=== PATIENT | male | born 1935 | race Two or more races ===

== ENCOUNTER 2019-10-30 23:40 | Inpatient (IN) | payer MEDICARE, OTHER ==
[~2019-10-30] VITALS: Ht 165.1 cm; Wt 54.7 kg
[2019-10-30] MEDS ORDERED: [UNRECOGNIZED DRUG - REMARK] (23:58)
[2019-10-30] MEDS ORDERED: [UNRECOGNIZED DRUG - REMARK] (23:58)
[2019-10-31] MEDS ORDERED: ASPIRIN 325 MG TABLET PO ONE (00:15)
[2019-10-31] MEDS ORDERED: HEPARIN SODIUM,PORCINE 5,000 UNITS/ML VIAL IV ONE (00:15)
[2019-10-31] MEDS ORDERED: HEPARIN/D5W DRIP 500 ML IV PRN ×2 (00:15→09:00)
[2019-10-31] MEDS ORDERED: HEPARIN/D5W DRIP 500 ML ONE (00:20)
[2019-10-31] MEDS ORDERED: HEPARIN SODIUM,PORCINE 5,000 UNITS/ML VIAL ONE (00:20)
[2019-10-31] MEDS ORDERED: ASPIRIN 325 MG TABLET ONE (00:20)
[2019-10-31 01:00] LABS: CARBON DIOXIDE 28 mmol/L (21-32); CHLORIDE 108 mmol/L (98-107); CREATININE 2.2 mg/dL (0.6-1.3); GLUCOSE 123 mg/dL (74-106); POTASSIUM 3.9 mmol/L (3.5-5.1); UREA NITROGEN, BLOOD 40 mg/dL (7-18)
[2019-10-31] MEDS ORDERED: FUROSEMIDE 40 MG/4 ML VIAL IV ONE (01:30)
[2019-10-31] MEDS ORDERED: FUROSEMIDE 40 MG/4 ML VIAL ONE (01:30)
[2019-10-31 01:39] LABS: BASOPHILS % (AUTO) 0.5 % (0.0-2.0); EOSINOPHILS # (AUTO) 0.5 K/uL (0.0-0.7); EOSINOPHILS % (AUTO) 6.6 % (0.0-7.0); HEMOGLOBIN 10.4 g/dL (12.5-16.3); LYMPHOCYTES # (AUTO) 0.9 K/uL (20.0-40.0); LYMPHOCYTES % (AUTO) 10.7 % (20.5-51.5); MEAN CORPUSCULAR HEMOGLOBIN 26.3 uug (23.8-33.4); MEAN CORPUSCULAR HGB CONC 32 g/dL (32.5-36.3); MEAN CORPUSCULAR VOLUME 81.2 fL (73.0-96.2); MONOCYTES # (AUTO) 0.8 K/uL (2.0-10.0); MONOCYTES % (AUTO) 10.5 % (0.0-11.0); NEUTROPHILS # (AUTO) 5.8 K/uL (1.8-8.9); NEUTROPHILS % (AUTO) 71.7 % (38.5-71.5); PLATELET COUNT (AUTO) 225 K/uL (152-348); RED BLOOD CELL COUNT(AUTO) 3.94 MIL/uL (4.06-5.63); WHITE BLOOD COUNT (AUTO) 8.1 K/uL (3.6-10.2)
[2019-10-31] MEDS ORDERED: LORAZEPAM 2 MG/1 ML VIAL ONE (01:44)
[2019-10-31] MEDS ORDERED: LORAZEPAM 2 MG/1 ML VIAL IV ONE (01:45)
--- NOTE | 2019-10-31 01:55 | NUR ---
Pt. admitted to [facility] , under care of DIMITRIS LOUIE DNP Belongs List completed
--- NOTE | 2019-10-31 03:19 | NUR ---
REPORT GIVEN TO DMITRY DEE.
--- NOTE | 2019-10-31 03:40 | NUR ---
Admitted 83 y/o Male under the care of Dr. Gideon Granda. Dx: CHF. Patient is A&Ox1 w/ confusion, Maori speaking only. On Heparin drip 660 units for ACS running at 13.2 ml/hr. IV site on RAC 20g and LFA 20g intact and patent. Patient placed on Tele monitor. Body assessment done. Admission protocol initiated. Safety measures observed. Call light in reach
[2019-10-31 04:00] VITALS: BP 140/90
[2019-10-31] MEDS ORDERED: BUMETANIDE INJ 6 MG in IV DEXTROSE 5% 36 ML IV ONE (04:45)
[2019-10-31] MEDS ORDERED: HYDROCODONE/APAP 5-325MG TABLET PO PRN (04:45)
[2019-10-31] MEDS ORDERED: ALBUTEROL SULFATE 2.5 MG/ 0.5 ML NEBU NEB PRN (04:45)
[2019-10-31] MEDS ORDERED: IPRATROPIUM BROMIDE 0.5 MG/2.5 ML NEBU NEB PRN (04:45)
[2019-10-31] MEDS ORDERED: MAGNESIUM HYDROXIDE 30 ML LIQUID UDC PO PRN (04:45)
[2019-10-31] MEDS ORDERED: DEXTROSE 50% 50 ML DISP.SYRIN IV PRN (04:45)
[2019-10-31] MEDS ORDERED: Z GUARD REMEDY PASTE 57 GM TUBE TOP PRN (04:45)
[2019-10-31] MEDS ORDERED: ONDANSETRON 4 MG/2 ML VIAL IV PRN (04:45)
[2019-10-31] MEDS ORDERED: BUMETANIDE 1 MG/4 ML VIAL ONE ×2 (05:15)
[2019-10-31] MEDS: NITROGLYCERIN OINT 1 GM PACKET TP SCH ×3 (05:49→17:00)
[2019-10-31] MEDS: ACETAMINOPHEN 325 MG TABLET PO PRN (05:56)
[2019-10-31] MEDS: LEVOTHYROXINE SODIUM 100 MCG TABLET PO SCH (06:03)
[2019-10-31] MEDS: BLOOD SUGAR DIAGNOSTIC 1 EACH STRIP VI SCH ×5 (06:44→20:28)
[2019-10-31 07:56] LABS: BASOPHILS % (AUTO) 0.4 % (0.0-2.0); EOSINOPHILS # (AUTO) 0.1 K/uL (0.0-0.7); EOSINOPHILS % (AUTO) 1.6 % (0.0-7.0); HEMATOCRIT 29.7 % (36.7-47.1); HEMOGLOBIN 9.7 g/dL (12.5-16.3); LYMPHOCYTES # (AUTO) 0.7 K/uL (20.0-40.0); LYMPHOCYTES % (AUTO) 11.4 % (20.5-51.5); MEAN CORPUSCULAR HEMOGLOBIN 26.7 uug (23.8-33.4); MEAN CORPUSCULAR HGB CONC 33 g/dL (32.5-36.3); MEAN CORPUSCULAR VOLUME 82.3 fL (73.0-96.2); MONOCYTES # (AUTO) 1.1 K/uL (2.0-10.0); NEUTROPHILS # (AUTO) 4.2 K/uL (1.8-8.9); NEUTROPHILS % (AUTO) 68.6 % (38.5-71.5); PLATELET COUNT (AUTO) 206 K/uL (152-348); RED BLOOD CELL COUNT(AUTO) 3.61 MIL/uL (4.06-5.63); WHITE BLOOD COUNT (AUTO) 6.2 K/uL (3.6-10.2)
[2019-10-31 08:16] LABS: CARBON DIOXIDE 26 mmol/L (21-32); CHLORIDE 108 mmol/L (98-107); GLUCOSE 123 mg/dL (74-106); MAGNESIUM 2.3 mg/dL (1.8-2.4); PHOSPHOROUS 3.4 mg/dL (2.5-4.9); UREA NITROGEN, BLOOD 41 mg/dL (7-18)
[2019-10-31 08:29] LABS: CREATININE 2.5 mg/dL (0.6-1.3)
[2019-10-31 09:04] LABS: NEUTROPHILS % (MANUAL) 75 % (42-75)
[2019-10-31 09:05] LABS: EOSINOPHILS % (MANUAL) 5 % (0-8); LYMPHOCYTES % (MANUAL) 12 % (20-40); MONOCYTES % (MANUAL) 8 % (2-10)
[2019-10-31 11:15] VITALS: BP 151/97
[2019-10-31] MEDS ORDERED: HEPARIN SODIUM,PORCINE 5,000 UNITS/ML VIAL IV PRN (11:45)
[2019-10-31] MEDS ORDERED: LEVOFLOXACIN 500 MG/D5W 500 MG in PREMIXED 1 EACH IV SCH (14:30)
[2019-10-31] MEDS ORDERED: FUROSEMIDE 40 MG/4 ML VIAL IV SCH (15:00)
[2019-10-31 15:16] VITALS: BP 126/83
[2019-10-31] MEDS: ASPIRIN EC 81 MG TABLET.DR PO SCH (15:31)
[2019-10-31] MEDS ORDERED: LEVOFLOXACIN 500 MG/D5W 500 MG in PREMIXED 1 EACH IV ONE (16:00)
--- NOTE | 2019-10-31 18:40 | NUR ---
PATIENT HAS BEEN COOPERATIVE WITH CARE THROUGHOUT SHIFT, Luxembourgish speaking only. On Heparin drip 610 units for ACS running. IV site on RAC 20g and LFA 20g intact and patent. Patient placed on Tele monitor. Safety measures observed. Call light in reach. Patient tolerating heparin drip, and adjusted as ordered per protocol. All needs met at this time, bed in low position, side rails up x2. call light in reach.
--- NOTE | 2019-10-31 19:30 | NUR ---
Received patient resting in bed, easily to arouse. No signs of acute distress noted. No complaints of pain or SOB. Vitals WNL. Heparin running at 610 units/hr on the right forearm. Next APTT is scheduled for 0600. Heplock on the right AC is intact and patent. Safety measures initiated. Bed is low and locked, call light within reach. Will continue to monitor.
[2019-10-31 20:00] VITALS: BP 126/77
[2019-11-01] VITALS: BP 124/76
[2019-11-01] MEDS: NITROGLYCERIN OINT 1 GM PACKET TP SCH ×5 (00:12→23:51)
[2019-11-01 04:00] VITALS: BP 115/74
[2019-11-01] MEDS: LEVOTHYROXINE SODIUM 100 MCG TABLET PO SCH (06:18)
[2019-11-01] MEDS: PANTOPRAZOLE SODIUM 40 MG TABLET.DR PO SCH (06:18)
[2019-11-01 06:32] LABS: BASOPHILS % (AUTO) 0.5 % (0.0-2.0); EOSINOPHILS # (AUTO) 0.9 K/uL (0.0-0.7); EOSINOPHILS % (AUTO) 15.6 % (0.0-7.0); HEMATOCRIT 33.4 % (36.7-47.1); HEMOGLOBIN 11.1 g/dL (12.5-16.3); LYMPHOCYTES # (AUTO) 1.3 K/uL (20.0-40.0); LYMPHOCYTES % (AUTO) 20.9 % (20.5-51.5); MEAN CORPUSCULAR HEMOGLOBIN 27.9 uug (23.8-33.4); MEAN CORPUSCULAR HGB CONC 33 g/dL (32.5-36.3); MONOCYTES # (AUTO) 0.7 K/uL (2.0-10.0); MONOCYTES % (AUTO) 12.4 % (0.0-11.0); NEUTROPHILS % (AUTO) 50.6 % (38.5-71.5); PLATELET COUNT (AUTO) 231 K/uL (152-348); RED BLOOD CELL COUNT(AUTO) 3.97 MIL/uL (4.06-5.63)
--- NOTE | 2019-11-01 06:39 | NUR ---
Patient slept well, no distress noted. Heparin still running at 12.2 ml/hr. Medications given as ordered. No complaints of pain or SOB. Vitals WNL. Safety measures given. Will endorse to next shift.
[2019-11-01 06:45] LABS: CHLORIDE 105 mmol/L (98-107); GLUCOSE 78 mg/dL (74-106); PHOSPHOROUS 2.8 mg/dL (2.5-4.9); POTASSIUM 3.4 mmol/L (3.5-5.1); UREA NITROGEN, BLOOD 46 mg/dL (7-18)
[2019-11-01 08:07] LABS: CARBON DIOXIDE 28 mmol/L (21-32)
[2019-11-01] MEDS ORDERED: ASPIRIN EC 81 MG TABLET.DR PO SCH (09:00)
[2019-11-01 09:13] LABS: CREATININE 2.6 mg/dL (0.6-1.3)
[2019-11-01 09:14] LABS: CHOLESTEROL 130 mg/dL (<200); HDL CHOLESTEROL 47 mg/dL (40-60); TRIGLYCERIDES 53 MG/DL (30-150)
[2019-11-01] MEDS: ASPIRIN EC 81 MG TABLET.DR PO SCH (09:19)
[2019-11-01] MEDS: FUROSEMIDE 40 MG TABLET PO SCH (09:19)
[2019-11-01] MEDS: BLOOD SUGAR DIAGNOSTIC 1 EACH STRIP VI SCH ×4 (09:21→20:56)
[2019-11-01] MEDS: INSULIN REGULAR, HUMAN 300 UNIT/3 ML VIAL SQ PRN ×3 (09:23→17:42)
[2019-11-01 11:09] VITALS: BP 114/72
[2019-11-01] MEDS: CLINDAMYCIN HCL 300 MG CAPSULE PO SCH ×2 (14:32→21:02)
[2019-11-01 15:08] VITALS: BP 103/67
--- NOTE | 2019-11-01 19:30 | NUR ---
Received patient awake and alert in bed, No acute distress noted. Heparin drip was D/C Heplock on right AC and right forearm are intact and patent. Patient has no complaints of discomfort at this time. Vitals WNL. Safety measures initiated. Bed is low and locked, call light within reach, bed alarm on. Will continue to monitor.
[2019-11-01 20:28] VITALS: BP 113/64
[2019-11-01] MEDS ORDERED: CLINDAMYCIN HCL 300 MG CAPSULE ONE (20:29)
[2019-11-01] MEDS ORDERED: AMOXICILLIN-CLAVUL 500-125MG TABLET PO SCH (21:00)
--- NOTE | 2019-11-01 21:59 | NUR ---
Patient refusing accucheck, notified Dr. Correa and noted that hemoglobin A1c was 5.7, okay to discontinue accuchecks.
[2019-11-02] VITALS: BP 113/65
[2019-11-02 04:00] VITALS: BP 115/68
[2019-11-02] MEDS ORDERED: CLINDAMYCIN HCL 150 MG CAPSULE ONE (06:04)
[2019-11-02] MEDS: PANTOPRAZOLE SODIUM 40 MG TABLET.DR PO SCH (06:14)
[2019-11-02] MEDS: LEVOTHYROXINE SODIUM 100 MCG TABLET PO SCH (06:14)
[2019-11-02] MEDS: CLINDAMYCIN HCL 300 MG CAPSULE PO SCH ×3 (06:16→22:43)
[2019-11-02] MEDS: NITROGLYCERIN OINT 1 GM PACKET TP SCH ×3 (06:17→17:04)
--- NOTE | 2019-11-02 08:00 | NUR ---
PT is in no acute distress. PT telugu speaking but able to make his needs known. Call light is within reach. Fall precaution implemented. PT near nursing station. Awaiting for PT eval. PT is to have the life vest (AIcd vest) awaiting vendor.
[2019-11-02] MEDS: FUROSEMIDE 40 MG TABLET PO SCH (08:59)
[2019-11-02] MEDS: ASPIRIN EC 81 MG TABLET.DR PO SCH (08:59)
[2019-11-02 11:34] VITALS: BP 139/82
--- NOTE | 2019-11-02 13:00 | NUR ---
[employer] vendor here educating patient. Pt stating that pt is forgetfull.
[2019-11-02 15:37] VITALS: BP 107/58
[2019-11-02] MEDS ORDERED: LEVOFLOXACIN 250MG /D5W 250 MG in PREMIXED 1 EACH IV SCH (16:00)
--- NOTE | 2019-11-02 18:24 | NUR ---
Dr ruiz notified that pt is refusing to have the life vest. Pt had discussion with director of social services. Dr ruiz here to see patient. Pt is upset that we dont have his dentures. Explained to pt that per valuables checklist is that he didnt come with any dentures. Pt is in no acute distress. TELE dc. Call light is within reach.
--- NOTE | 2019-11-02 19:30 | NUR ---
RECEIVED PT AWAKE, ALERT AND ORIENTEDX3. PT IN NO ACUTE DISTRESS. IV INTACT. SAFETY AND COMFORT PROVIDED. WILL CONTINUE TO MONITOR.
[2019-11-02 20:32] VITALS: BP 112/67
[2019-11-03] MEDS: NITROGLYCERIN OINT 1 GM PACKET TP SCH ×4 (00:24→18:33)
[2019-11-03] MEDS: CLINDAMYCIN HCL 300 MG CAPSULE PO SCH ×3 (05:49→22:09)
[2019-11-03] MEDS: PANTOPRAZOLE SODIUM 40 MG TABLET.DR PO SCH (06:02)
[2019-11-03] MEDS: LEVOTHYROXINE SODIUM 100 MCG TABLET PO SCH (06:03)
--- NOTE | 2019-11-03 06:17 | NUR ---
PT IN NO ACUTE DISTRESS. PRESCRIBED MEDICATION GIVEN AND PT TOLERATED IT WELL. PT TOLERATED IT WELL.SAFETY AND COMFORT PROVIDED. ALL NEEDS ARE MET. WILL ENDORSE TO INCOMING NURSE FOR CONTINUITY OF CARE.
[2019-11-03 06:37] VITALS: BP 115/64
[2019-11-03 07:00] LABS: *BILIRUBIN,URIN NEGATIVE (NEGATIVE); *BLOOD, URINE NEGATIVE (NEGATIVE); *CLARITY,URINE CLEAR (CLEAR); *COLOR,URINE YELLOW (YELLOW); *KETONES,URINE NEGATIVE (NEGATIVE); *UROBILINOGEN,URINE 0.2 E.U./dl (NORMAL); LEUKOCYTE ESTERASE ,URINE NEGATIVE (NEGATIVE); NITRITE, URINE NEGATIVE (NEGATIVE); UGLUCOSE NEGATIVE (NEGATIVE)
[2019-11-03 07:25] LABS: *URINE TOTAL PROTEIN RANDOM 28.9 mg/dL (<150/24HR)
[2019-11-03 07:26] LABS: *CREATININE,URINE 63.1 mg/dL (30-125)
--- NOTE | 2019-11-03 08:00 | NUR ---
RECEIVED PT RESTING COMFORTABLY IN BED. NO ACUTE DISTRESS OR SOB NOTED. BED LOCKED AND IN LOW POSITION. PT IS SLOVAK SPEAKER. PT ALERT AND ORIENTED X3. PLEASANT AND COOPERATIVE. WILL CONTINUE TO MONITOR PATIENT FOR SAFETY AND COMFORT.
[2019-11-03] MEDS ORDERED: OLAN2.5T3 PO (08:08)
[2019-11-03] MEDS ORDERED: DONE5TAB7 PO (08:08)
[2019-11-03] MEDS ORDERED: LEVO88TA5 PO (08:08)
[2019-11-03] MEDS ORDERED: FURO-151 PO (08:08)
[2019-11-03] MEDS ORDERED: LISI-607 PO (08:08)
[2019-11-03] MEDS ORDERED: CARV3.12 PO (08:08)
[2019-11-03] MEDS ORDERED: TAMS-3 PO (08:08)
[2019-11-03] MEDS ORDERED: ATOR40TA PO (08:08)
[2019-11-03] MEDS: ASPIRIN EC 81 MG TABLET.DR PO SCH (09:35)
[2019-11-03] MEDS: FUROSEMIDE 40 MG TABLET PO SCH (09:35)
[2019-11-03] MEDS: METOPROLOL SUCCINATE XL 25 MG TAB.SR.24H PO SCH (09:39)
[2019-11-03 11:29] VITALS: BP 113/61
--- NOTE | 2019-11-03 12:30 | NUR ---
DR RAPP, AD WRITER, EXPLAINED TO PATIENT THE IMPORTANCE OF DEFIB VEST, WHICH PT REFUSED PRIOR TO TODAY. PT STILL REFUSED VEST AFTER DR RAPP EXPLAINED THE ADVANTAGES AND CRITICAL REASONS OF WHY THIS VEST SHOULD BE WORN.
[2019-11-03 16:00] VITALS: BP 124/67
--- NOTE | 2019-11-03 18:00 | NUR ---
PT RESTING COMFORTABLY IN BED. NO ACUTE DISTRESS OR SOB NOTED. PT ALERT AND ORIENTED X3. PT ON O2 VIA NC @ 0.5 L/M . BED LOCKED AND IN LOW POSITION. ALL NEEDS ADDRESSED. CALL LIGHT WITHIN REACH. PT REFUSED VEST OFFERED BY DR RAPP. WILL GIVE REPORT ACCORDINGLY.
--- NOTE | 2019-11-03 19:30 | NUR ---
RECEIVED PT AWAKE, ALERT AND ORIENTED X4. PT IN NO ACUTE DISTRESS. PT ON NASAL CANNULA. SAFETY AND COMFORT PROVIDED. WILL CONTINUE TO MONITOR.
[2019-11-03 20:36] VITALS: BP 117/63
[2019-11-03] MEDS: ACETAMINOPHEN 325 MG TABLET PO PRN (22:09)
[2019-11-04] MEDS: NITROGLYCERIN OINT 1 GM PACKET TP SCH ×4 (00:28→18:03)
[2019-11-04] MEDS: CLINDAMYCIN HCL 300 MG CAPSULE PO SCH ×3 (05:26→14:27)
[2019-11-04 05:47] VITALS: BP 135/72
--- NOTE | 2019-11-04 05:47 | NUR ---
PT IN NO ACUTE DISTRESS. IV INTACT. PRESCRIBED MEDICATION GIVEN AND PT TOLERATED IT WELL. PT COMPLIANT WITH CARE. SAFETY AND COMFORT PROVIDED. WILL ENDORSE TO INCOMING NURSE FOR CONTINUITY OF CARE.
[2019-11-04] MEDS: PANTOPRAZOLE SODIUM 40 MG TABLET.DR PO SCH (06:01)
[2019-11-04] MEDS: LEVOTHYROXINE SODIUM 100 MCG TABLET PO SCH (06:01)
--- NOTE | 2019-11-04 08:00 | NUR ---
RECEIVED PT RESTING COMFORTABLY IN BED. NO ACUTE DISTRESS OR SOB NOTED. PT ALERT AND ORIENTED X3. PLEASANT AND COOPERATIVE. CALL LIGHT WITHIN REACH. BED LOCKED AND IN LOW POSITION. WILL CONTINUE TO MONITOR FOR SAFETY AND COMFORT.
[2019-11-04] MEDS: METOPROLOL SUCCINATE XL 25 MG TAB.SR.24H PO SCH (09:17)
[2019-11-04] MEDS: FUROSEMIDE 40 MG TABLET PO SCH (09:17)
[2019-11-04] MEDS: ASPIRIN EC 81 MG TABLET.DR PO SCH (09:17)
[2019-11-04 12:00] VITALS: BP 114/62
[2019-11-04 16:41] VITALS: BP 129/70
--- NOTE | 2019-11-04 18:00 | NUR ---
PT RESTING COMFORTABLY IN BED. NO ACUTE DISTRESS OR SOB NOTED. PT ALERT AND ORIENTED X3. PT ON O2 VIA NC @ 0.5 L/M . BED LOCKED AND IN LOW POSITION. ALL NEEDS ADDRESSED. CALL LIGHT WITHIN REACH. PT REFUSED VEST OFFERED BY Dr SCHAEFFER. WILL GIVE REPORT ACCORDINGLY.
--- NOTE | 2019-11-04 19:30 | NUR ---
Received patient awake and alert in bed, no signs of acute distress noted. No complaints of pain or SOB. Vitals WNL. Heplock on the right AC is intact and patent. Safety measures initiated. Bed is low and locked, call light within reach, bed alarm on. Will continue to monitor
[2019-11-04 20:23] VITALS: BP 125/72
[2019-11-05] MEDS: NITROGLYCERIN OINT 1 GM PACKET TP SCH ×4 (00:13→18:17)
[2019-11-05 05:53] VITALS: BP 122/56
[2019-11-05] MEDS: PANTOPRAZOLE SODIUM 40 MG TABLET.DR PO SCH (06:22)
[2019-11-05] MEDS: LEVOTHYROXINE SODIUM 100 MCG TABLET PO SCH (06:22)
--- NOTE | 2019-11-05 06:41 | NUR ---
PATIENT SLEPT WELL, NO DISTRESS NOTED. NO COMPLAINTS OF PAIN OR SOB. MEDICATION GIVEN ORDERED. ALL NEEDS MET. WILL ENDORSE TO NEXT SHIFT.
--- NOTE | 2019-11-05 07:45 | NUR ---
RECEIVED PT IN BED, AWAKE, AOX3. NO ACUTE DISTRESS OR SOB NOTED. NO CHEST PAIN. PLEASANT AND COOPERATIVE. CALL LIGHT WITHIN REACH. BED LOCKED AND IN LOW POSITION. WILL CONTINUE TO MONITOR FOR SAFETY AND COMFORT.
[2019-11-05] MEDS: FUROSEMIDE 40 MG TABLET PO SCH (09:18)
[2019-11-05] MEDS: ASPIRIN EC 81 MG TABLET.DR PO SCH (09:18)
[2019-11-05] MEDS: METOPROLOL SUCCINATE XL 25 MG TAB.SR.24H PO SCH (09:19)
[2019-11-05 11:08] VITALS: BP 116/67
[2019-11-05] MEDS ORDERED: NITR1OIN2 TP (11:10)
[2019-11-05] MEDS ORDERED: PANT40TA2 PO (11:10)
[2019-11-05] MEDS ORDERED: LEVO100T10 PO (11:10)
[2019-11-05] MEDS ORDERED: METO-356 PO (11:10)
[2019-11-05] MEDS ORDERED: MENT71OI TOP (11:10)
[2019-11-05] MEDS ORDERED: IPRA0.2S6 NEB (11:10)
[2019-11-05] MEDS ORDERED: FURO40TA5 PO (11:10)
[2019-11-05] MEDS ORDERED: MAGN400O6 PO (11:10)
[2019-11-05] MEDS ORDERED: ASPI-618 PO (11:10)
[2019-11-05 15:18] VITALS: BP 116/60
--- NOTE | 2019-11-05 17:49 | NUR ---
PATIENT IN BED, AWAKE, AOX3. NO ACUTE DISTRESS, SOB OR CHEST PAIN THROUGH SHIFT. PLEASANT AND COOPERATIVE. CALL LIGHT WITHIN REACH. BED LOCKED AND IN LOW POSITION. WILL CONTINUE TO MONITOR FOR SAFETY AND COMFORT. PATIENT DUE FOR DISCHARGE TO SNF. PATIENT AWARE.
[2019-11-05 18:17] VITALS: BP 127/74
--- NOTE | 2019-11-05 18:30 | NUR ---
PATIENT DISCHARGED TO SNF. DISCHARGE INSTRUCTIONS REVIEWED WITH PATIENT AND SENT WITH PATENT. REPORT GIVEN TO ALEJANDRA DEE IN SNF. AMBULANCE TOOK PATIENT TO SNF AND REPORT GIVEN. PATIENT LEFT IN STABLE CONDITION. VS STABLE. BELONGINGS LEFT WITH PATIENT.
== END 2019-11-05 18:30 | DRG 280 ==
LOC: ER 23:43 → TELE3 10-31 03:14 → TELE-TD3 10-31 03:19 → TELE3 10-31 03:41 → MEDSURG3 11-02 20:57
PROVIDERS: ADMIT Nurse Practitioner Acute Care; ATTEND Student in an Organized Health Care Education/Training Program
DX: I13.0 Hypertensive heart and chronic kidney disease with heart failure and stage 1 through stage 4 chronic kidney disease, or unspecified chronic kidney disease (principal); I50.23 Acute on chronic systolic (congestive) heart failure; I21.A1 Myocardial infarction type 2; J15.9 Unspecified bacterial pneumonia; N17.0 Acute kidney failure with tubular necrosis; J44.0 Chronic obstructive pulmonary disease with (acute) lower respiratory infection; J44.1 Chronic obstructive pulmonary disease with (acute) exacerbation; I42.9 Cardiomyopathy, unspecified; E86.0 Dehydration; Z91.19 Patient's noncompliance with other medical treatment and regimen; I08.2 Rheumatic disorders of both aortic and tricuspid valves; I25.10 Atherosclerotic heart disease of native coronary artery without angina pectoris; N18.9 Chronic kidney disease, unspecified; Z86.73 Personal history of transient ischemic attack (TIA), and cerebral infarction without residual deficits; Z87.891 Personal history of nicotine dependence; N40.0 Benign prostatic hyperplasia without lower urinary tract symptoms; I45.9 Conduction disorder, unspecified; E78.5 Hyperlipidemia, unspecified; D64.9 Anemia, unspecified
CPT/HCPCS: 36415; 70030-TC; 71045; 76770; 83735; 84100; 84156; 84300; 84443; 85025; 85730; 87040; 87400; 93005; 93307; A4663; G0378; J1644; J1815; J1940; J1956; J2060; J2405; J3490; J3590; J7040; J7050; J7060

== ENCOUNTER 2019-12-21 09:00 | Inpatient (IN) | payer MEDICARE, OTHER ==
[2019-12-21] VITALS (10 sets, daily range): BP systolic 79–130; BP diastolic 52–81
[~2019-12-21] VITALS: Ht 165.1 cm; Wt 57.2 kg
[2019-12-21] MEDS ORDERED: IV NORMAL SALINE 1000 ML BAG IV ONE ×2 (09:15→10:15)
[2019-12-21 09:46] LABS: CARBON DIOXIDE 22 mmol/L (21-32); CHLORIDE 113 mmol/L (98-107); CREATININE 2.8 mg/dL (0.6-1.3); GLUCOSE 151 mg/dL (74-106); POTASSIUM 3.2 mmol/L (3.5-5.1); UREA NITROGEN, BLOOD 47 mg/dL (7-18)
[2019-12-21 09:52] LABS: ALANINE AMINOTRANSFERASE 63 U/L (16-63); ALKALINE PHOSPHATASE 124 U/L (50-136); ASPARTATE AMINOTRANSFERASE 49 U/L (15-37); BILIRUBIN,DIRECT 0.7 mg/dL (0.0-0.2); BILIRUBIN,TOTAL 1.7 mg/dL (0.2-1.0); LIPASE 235 U/L (73-393); TOTAL PROTEIN, SERUM 6.5 g/dL (6.4-8.2)
[2019-12-21 09:57] LABS: BASOPHILS % (AUTO) 0.9 % (0.0-2.0); EOSINOPHILS # (AUTO) 0.2 K/uL (0.0-0.7); EOSINOPHILS % (AUTO) 3.1 % (0.0-7.0); HEMATOCRIT 30.6 % (36.7-47.1); HEMOGLOBIN 9.5 g/dL (12.5-16.3); LYMPHOCYTES # (AUTO) 0.5 K/uL (20.0-40.0); LYMPHOCYTES % (AUTO) 10.7 % (20.5-51.5); MEAN CORPUSCULAR HEMOGLOBIN 25.3 uug (23.8-33.4); MEAN CORPUSCULAR HGB CONC 31 g/dL (32.5-36.3); MEAN CORPUSCULAR VOLUME 81.4 fL (73.0-96.2); MONOCYTES # (AUTO) 0.3 K/uL (2.0-10.0); NEUTROPHILS # (AUTO) 3.9 K/uL (1.8-8.9); NEUTROPHILS % (AUTO) 78.3 % (38.5-71.5); PLATELET COUNT (AUTO) 165 K/uL (152-348); RED BLOOD CELL COUNT(AUTO) 3.77 MIL/uL (4.06-5.63)
[2019-12-21 10:37] LABS: *BILIRUBIN,URIN NEGATIVE (NEGATIVE); *BLOOD, URINE NEGATIVE (NEGATIVE); *COLOR,URINE YELLOW (YELLOW); *KETONES,URINE NEGATIVE (NEGATIVE); *UROBILINOGEN,URINE 0.2 E.U./dl (NORMAL); LEUKOCYTE ESTERASE ,URINE NEGATIVE (NEGATIVE); NITRITE, URINE NEGATIVE (NEGATIVE); PH,URINE 5.5 (5.0-8.0); UGLUCOSE NEGATIVE (NEGATIVE)
[2019-12-21 10:49] LABS: *CLARITY,URINE HAZY (CLEAR)
[2019-12-21 10:51] LABS: RBC,URINE 0-3 /HPF (0-3)
[2019-12-21 10:52] LABS: BACTERIA,URINE NONE SEEN /HPF (NONE SEEN); SQUAMOUS EPITHELIAL CELL,UR FEW /HPF (NONE SEEN)
[2019-12-21 10:53] LABS: MUCUS,URINE FEW /LPF (0-FEW)
[2019-12-21] MEDS ORDERED: FUROSEMIDE 20 MG/2 ML VIAL IV SCH (12:15)
[2019-12-21] MEDS ORDERED: ACETAMINOPHEN 650 MG SUPP.RECT RC PRN (12:15)
[2019-12-21] MEDS ORDERED: ONDANSETRON 4 MG/2 ML VIAL IV PRN (12:15)
[2019-12-21] MEDS: PANTOPRAZOLE SODIUM 40 MG VIAL IV SCH (12:47)
[2019-12-21] MEDS: POTASSIUM CHLORIDE 20 MEQ in IV D5 1/2 NS 1000 ML 1,000 ML IV PRN (12:57)
[2019-12-21] MEDS: LEVOFLOXACIN 250MG /D5W 250 MG in PREMIXED 1 EACH IV SCH (12:58)
[2019-12-21 12:59] LABS: IRON, SERUM 17 ug/dL (50-175)
[2019-12-21] MEDS: ALBUTEROL SULFATE 2.5 MG/3 ML NEBU NEB PRN (13:04)
[2019-12-21 13:27] LABS: HEMATOCRIT 29.2 % (36.7-47.1); HEMOGLOBIN 8.9 g/dL (12.5-16.3)
[2019-12-21] MEDS: METRONIDAZOLE 500 MG/NS 100ML 500 MG in PREMIXED 1 EACH IV SCH ×2 (14:21→21:56)
[2019-12-21 21:53] LABS: HEMATOCRIT 25.2 % (36.7-47.1); HEMOGLOBIN 7.9 g/dL (12.5-16.3)
[2019-12-21] MEDS: LORAZEPAM 2 MG/1 ML VIAL IV PRN (22:06)
[2019-12-22] VITALS (17 sets, daily range): BP systolic 90–127; BP diastolic 56–83
[2019-12-22] MEDS: PANTOPRAZOLE SODIUM 40 MG VIAL IV SCH ×3 (02:14→23:50)
[2019-12-22 04:51] LABS: EOSINOPHILS # (AUTO) 0.2 K/uL (0.0-0.7); LYMPHOCYTES # (AUTO) 0.7 K/uL (20.0-40.0); MONOCYTES # (AUTO) 0.5 K/uL (2.0-10.0); NEUTROPHILS # (AUTO) 4.4 K/uL (1.8-8.9); RED BLOOD CELL COUNT(AUTO) 2.77 MIL/uL (4.06-5.63); WHITE BLOOD COUNT (AUTO) 5.8 K/uL (3.6-10.2)
[2019-12-22 04:53] LABS: BASOPHILS % (AUTO) 0.6 % (0.0-2.0); EOSINOPHILS % (AUTO) 3.4 % (0.0-7.0); LYMPHOCYTES % (AUTO) 11.8 % (20.5-51.5); MEAN CORPUSCULAR HEMOGLOBIN 25.5 uug (23.8-33.4); MEAN CORPUSCULAR HGB CONC 32 g/dL (32.5-36.3); MEAN CORPUSCULAR VOLUME 79.4 fL (73.0-96.2); MONOCYTES % (AUTO) 8.2 % (0.0-11.0); PLATELET COUNT (AUTO) 151 K/uL (152-348)
[2019-12-22 05:06] LABS: ALANINE AMINOTRANSFERASE 48 U/L (16-63); ALKALINE PHOSPHATASE 83 U/L (50-136); ASPARTATE AMINOTRANSFERASE 40 U/L (15-37); CARBON DIOXIDE 22 mmol/L (21-32); CHLORIDE 117 mmol/L (98-107); CREATININE 2.6 mg/dL (0.6-1.3); GLUCOSE 105 mg/dL (74-106); PHOSPHOROUS 2.9 mg/dL (2.5-4.9); POTASSIUM 3.5 mmol/L (3.5-5.1); TOTAL PROTEIN, SERUM 5.2 g/dL (6.4-8.2); UREA NITROGEN, BLOOD 42 mg/dL (7-18)
[2019-12-22] MEDS: METRONIDAZOLE 500 MG/NS 100ML 500 MG in PREMIXED 1 EACH IV SCH ×3 (05:28→21:59)
[2019-12-22 05:54] LABS: THYROID STIMULATING HORMONE 103.922 mIU/mL (0.358-3.740)
[2019-12-22 06:12] LABS: HEMOGLOBIN 7.1 g/dL (12.5-16.3)
[2019-12-22] MEDS ORDERED: Z GUARD REMEDY PASTE 57 GM TUBE TOP PRN (06:30)
[2019-12-22 07:49] LABS: EOSINOPHILS % (MANUAL) 3 % (0-8); LYMPHOCYTES % (MANUAL) 12 % (20-40); MONOCYTES % (MANUAL) 8 % (2-10); NEUTROPHILS % (MANUAL) 77 % (42-75)
[2019-12-22] MEDS: Z GUARD REMEDY PASTE 57 GM TUBE TOP SCH ×2 (09:56→21:23)
[2019-12-22] MEDS ORDERED: LEVOTHYROXINE SODIUM 100 MCG VIAL IV SCH (10:15)
[2019-12-22] MEDS: LEVOFLOXACIN 250MG /D5W 250 MG in PREMIXED 1 EACH IV SCH (11:51)
[2019-12-22 12:39] LABS: HEMATOCRIT 22.3 % (36.7-47.1)
[2019-12-22 12:40] LABS: HEMOGLOBIN 6.8 g/dL (12.5-16.3)
[2019-12-22] MEDS: POTASSIUM CHLORIDE 20 MEQ in IV D5 1/2 NS 1000 ML 1,000 ML IV PRN (15:17)
[2019-12-22] MEDS ORDERED: HYDROCODONE/APAP 5-325MG TABLET PO PRN (16:30)
[2019-12-22] MEDS: LORAZEPAM 2 MG/1 ML VIAL IV PRN (20:29)
[2019-12-22] MEDS ORDERED: ACETAMINOPHEN 325 MG TABLET PO PRN (20:45)
[2019-12-22] MEDS ORDERED: OLANZAPINE 5 MG TABLET ONE (22:00)
[2019-12-22] MEDS: OLANZAPINE 2.5 MG TABLET PO SCH (22:03)
[2019-12-22 22:09] LABS: HEMATOCRIT 30.4 % (36.7-47.1); HEMOGLOBIN 9.9 g/dL (12.5-16.3)
[2019-12-23] VITALS (9 sets, daily range): BP systolic 119–125; BP diastolic 65–88
[2019-12-23 05:11] LABS: CARBON DIOXIDE 24 mmol/L (21-32); CHLORIDE 117 mmol/L (98-107); CREATININE 2.5 mg/dL (0.6-1.3); GLUCOSE 102 mg/dL (74-106); MAGNESIUM 2.1 mg/dL (1.8-2.4); PHOSPHOROUS 3.2 mg/dL (2.5-4.9); POTASSIUM 3.9 mmol/L (3.5-5.1); UREA NITROGEN, BLOOD 34 mg/dL (7-18)
[2019-12-23 05:14] LABS: BASOPHILS # (AUTO) 0.1 K/uL (0.0-8.0); BASOPHILS % (AUTO) 0.8 % (0.0-2.0); EOSINOPHILS # (AUTO) 0.2 K/uL (0.0-0.7); EOSINOPHILS % (AUTO) 3.5 % (0.0-7.0); HEMATOCRIT 31.9 % (36.7-47.1); HEMOGLOBIN 10.4 g/dL (12.5-16.3); LYMPHOCYTES # (AUTO) 0.6 K/uL (20.0-40.0); LYMPHOCYTES % (AUTO) 8.8 % (20.5-51.5); MEAN CORPUSCULAR HEMOGLOBIN 27.3 uug (23.8-33.4); MEAN CORPUSCULAR HGB CONC 33 g/dL (32.5-36.3); MEAN CORPUSCULAR VOLUME 83.6 fL (73.0-96.2); MONOCYTES # (AUTO) 0.6 K/uL (2.0-10.0); MONOCYTES % (AUTO) 9.1 % (0.0-11.0); NEUTROPHILS # (AUTO) 5.1 K/uL (1.8-8.9); NEUTROPHILS % (AUTO) 77.8 % (38.5-71.5); PLATELET COUNT (AUTO) 133 K/uL (152-348); RED BLOOD CELL COUNT(AUTO) 3.82 MIL/uL (4.06-5.63); WHITE BLOOD COUNT (AUTO) 6.6 K/uL (3.6-10.2)
[2019-12-23] MEDS: METRONIDAZOLE 500 MG/NS 100ML 500 MG in PREMIXED 1 EACH IV SCH (05:25)
[2019-12-23 09:58] LABS: HEMATOCRIT 31.9 % (36.7-47.1); HEMOGLOBIN 10.1 g/dL (12.5-16.3)
[2019-12-23] MEDS: PANTOPRAZOLE ORAL SUSPENSION 40 MG SUSPDR.PKT PO SCH ×2 (11:26→23:49)
[2019-12-23] MEDS: LEVOTHYROXINE SODIUM 100 MCG TABLET PO SCH (11:26)
[2019-12-23] MEDS ORDERED: FUROSEMIDE 40 MG/4 ML VIAL IV ONE (12:00)
[2019-12-23] MEDS: Z GUARD REMEDY PASTE 57 GM TUBE TOP SCH ×2 (12:26→20:12)
[2019-12-23] MEDS: LEVOFLOXACIN 250 MG TABLET PO SCH (14:01)
[2019-12-23] MEDS: METRONIDAZOLE 500 MG TABLET PO SCH ×2 (14:01→21:13)
[2019-12-23] MEDS: LORAZEPAM 2 MG/1 ML VIAL IV PRN ×2 (14:02→20:57)
[2019-12-23] MEDS: ALBUTEROL SULFATE 2.5 MG/3 ML NEBU NEB PRN (14:10)
[2019-12-23 16:40] LABS: HEMATOCRIT 30.5 % (36.7-47.1); HEMOGLOBIN 9.9 g/dL (12.5-16.3)
[2019-12-23] MEDS: OLANZAPINE 2.5 MG TABLET PO SCH (20:11)
[2019-12-23 22:01] LABS: HEMATOCRIT 29.4 % (36.7-47.1); HEMOGLOBIN 9.7 g/dL (12.5-16.3)
[2019-12-24 00:08] VITALS: BP 101/51
[2019-12-24 04:23] VITALS: BP 126/54
[2019-12-24] MEDS: METRONIDAZOLE 500 MG TABLET PO SCH ×3 (05:27→21:12)
[2019-12-24] MEDS: LEVOTHYROXINE SODIUM 100 MCG TABLET PO SCH (06:08)
[2019-12-24 06:34] LABS: BASOPHILS % (AUTO) 0.5 % (0.0-2.0); EOSINOPHILS # (AUTO) 0.3 K/uL (0.0-0.7); EOSINOPHILS % (AUTO) 3.3 % (0.0-7.0); HEMATOCRIT 31.6 % (36.7-47.1); HEMOGLOBIN 10.2 g/dL (12.5-16.3); LYMPHOCYTES # (AUTO) 0.5 K/uL (20.0-40.0); LYMPHOCYTES % (AUTO) 6.2 % (20.5-51.5); MEAN CORPUSCULAR HGB CONC 32 g/dL (32.5-36.3); MEAN CORPUSCULAR VOLUME 83.4 fL (73.0-96.2); MONOCYTES # (AUTO) 0.7 K/uL (2.0-10.0); MONOCYTES % (AUTO) 8.5 % (0.0-11.0); NEUTROPHILS # (AUTO) 6.4 K/uL (1.8-8.9); NEUTROPHILS % (AUTO) 81.5 % (38.5-71.5); PLATELET COUNT (AUTO) 144 K/uL (152-348); RED BLOOD CELL COUNT(AUTO) 3.79 MIL/uL (4.06-5.63); WHITE BLOOD COUNT (AUTO) 7.9 K/uL (3.6-10.2)
[2019-12-24 06:55] LABS: CARBON DIOXIDE 24 mmol/L (21-32); CHLORIDE 115 mmol/L (98-107); CREATININE 2.5 mg/dL (0.6-1.3); GLUCOSE 80 mg/dL (74-106); POTASSIUM 2.9 mmol/L (3.5-5.1); UREA NITROGEN, BLOOD 31 mg/dL (7-18)
[2019-12-24] MEDS: Z GUARD REMEDY PASTE 57 GM TUBE TOP SCH ×2 (08:52→21:14)
[2019-12-24 11:30] VITALS: BP 122/72
[2019-12-24] MEDS: LEVOFLOXACIN 250 MG TABLET PO SCH (11:50)
[2019-12-24] MEDS: PANTOPRAZOLE ORAL SUSPENSION 40 MG SUSPDR.PKT PO SCH (11:50)
[2019-12-24] MEDS ORDERED: POTASSIUM CHLORIDE 10 MEQ TAB.PRT.SR PO ONE (13:30)
[2019-12-24 15:45] VITALS: BP 103/62
[2019-12-24] MEDS ORDERED: FUROSEMIDE 40 MG/4 ML VIAL IV ONE (16:00)
[2019-12-24] MEDS: POTASSIUM CHLORIDE 50 ML IV SCH ×3 (16:07→17:41)
[2019-12-24] MEDS ORDERED: POTASSIUM CHLORIDE 20 MEQ TAB.PRT.SR PO ONE (17:00)
[2019-12-24] MEDS: LORAZEPAM 2 MG/1 ML VIAL IV PRN (19:53)
[2019-12-24 20:11] VITALS: BP 108/63
[2019-12-24] MEDS: OLANZAPINE 2.5 MG TABLET PO SCH (21:12)
[2019-12-25] MEDS: PANTOPRAZOLE ORAL SUSPENSION 40 MG SUSPDR.PKT PO SCH ×2 (00:08→11:22)
[2019-12-25 04:34] VITALS: BP 106/65
[2019-12-25] MEDS: METRONIDAZOLE 500 MG TABLET PO SCH ×2 (05:49→14:22)
[2019-12-25] MEDS: LEVOTHYROXINE SODIUM 100 MCG TABLET PO SCH (05:50)
[2019-12-25 06:57] LABS: CARBON DIOXIDE 28 mmol/L (21-32); CHLORIDE 114 mmol/L (98-107); CREATININE 2.4 mg/dL (0.6-1.3); GLUCOSE 79 mg/dL (74-106); UREA NITROGEN, BLOOD 31 mg/dL (7-18)
[2019-12-25 07:04] LABS: POTASSIUM 2.7 mmol/L (3.5-5.1)
[2019-12-25] MEDS: Z GUARD REMEDY PASTE 57 GM TUBE TOP SCH (08:19)
[2019-12-25] MEDS ORDERED: POTASSIUM CHLORIDE 20 MEQ TAB.PRT.SR PO ONE (11:00)
[2019-12-25 11:10] VITALS: BP 94/49
[2019-12-25] MEDS: POTASSIUM CHLORIDE 50 ML IV SCH ×2 (11:21→13:42)
[2019-12-25] MEDS: LEVOFLOXACIN 250 MG TABLET PO SCH (11:22)
[2019-12-25] MEDS ORDERED: METOPROLOL SUCCINATE XL 25 MG TAB.SR.24H PO SCH (13:15)
[2019-12-25] MEDS ORDERED: SPIRONOLACTONE 25 MG TABLET PO SCH (13:15)
[2019-12-25] MEDS ORDERED: FUROSEMIDE 40 MG TABLET PO SCH (13:15)
[2019-12-25 15:30] VITALS: BP 105/56
[2019-12-26] MEDS ORDERED: POTASSIUM CHLORIDE 10 MEQ TAB.PRT.SR PO SCH (09:00)
== END 2019-12-25 17:40 | DRG 377 ==
LOC: ER 09:00 → CCU 11:03 → TELE3 12-23 05:54
PROVIDERS: ADMIT Internal Medicine
PROC: 05HB33Z Insertion of Infusion Device into Right Basilic Vein, Percutaneous Approach (ICD-10-PCS; principal; 2019-12-21)
PROC: 30233N1 Transfusion of Nonautologous Red Blood Cells into Peripheral Vein, Percutaneous Approach (ICD-10-PCS; 2019-12-22)
DX: K57.31 Diverticulosis of large intestine without perforation or abscess with bleeding (principal); N17.0 Acute kidney failure with tubular necrosis; E43 Unspecified severe protein-calorie malnutrition; I21.A1 Myocardial infarction type 2; E87.0 Hyperosmolality and hypernatremia; I13.0 Hypertensive heart and chronic kidney disease with heart failure and stage 1 through stage 4 chronic kidney disease, or unspecified chronic kidney disease; I50.22 Chronic systolic (congestive) heart failure; N18.4 Chronic kidney disease, stage 4 (severe); I42.0 Dilated cardiomyopathy; D68.59 Other primary thrombophilia; E87.2 Acidosis; A04.9 Bacterial intestinal infection, unspecified; Z68.1 Body mass index [BMI] 19.9 or less, adult; E87.6 Hypokalemia; E78.5 Hyperlipidemia, unspecified; Z74.09 Other reduced mobility; N40.0 Benign prostatic hyperplasia without lower urinary tract symptoms; F01.50 Vascular dementia, unspecified severity, without behavioral disturbance, psychotic disturbance, mood disturbance, and anxiety; I25.10 Atherosclerotic heart disease of native coronary artery without angina pectoris; J44.9 Chronic obstructive pulmonary disease, unspecified; D50.9 Iron deficiency anemia, unspecified; E03.9 Hypothyroidism, unspecified; Z88.0 Allergy status to penicillin; K64.9 Unspecified hemorrhoids; Z86.73 Personal history of transient ischemic attack (TIA), and cerebral infarction without residual deficits; N28.1 Cyst of kidney, acquired; R73.9 Hyperglycemia, unspecified; M19.90 Unspecified osteoarthritis, unspecified site; Z87.891 Personal history of nicotine dependence; Z91.19 Patient's noncompliance with other medical treatment and regimen; K74.60 Unspecified cirrhosis of liver
CPT/HCPCS: 36415; 70030-TC; 71045; 73501; 73560; 73620; 83550; 83605; 83690; 83735; 84100; 84443; 85018; 85025; 85730; 86850; 86900; 86901; 86920; 87086; 87400; 93005; 93307; 94640; 94664; A4663; C1758; C9113; G0378; J1940; J1956; J2060; J3480; J3490; J7030; J7042; J7050; P9016-BL; P9021

== ENCOUNTER 2019-12-27 08:13 | Inpatient (IN) | payer MEDICARE, OTHER ==
[~2019-12-27] VITALS: Ht 162.6 cm; Wt 61.4 kg
[~2019-12-27 08:13] MED LIST: ACET-2154 PO; ACET-2605 PO; ASPI-618 PO; ATOR40TA PO; BISA10SU61 RC; DOCU-141 PO; FURO40TA5 PO; IPRA0.2S6 NEB; LEVO100T10 PO; MAGN400O6 PO; MENT71OI TOP; METO-356 PO; MULT1TAB73 PO; NA P133E RC; NITR1OIN2 TP; OLAN2.5T3 PO; PANT40TA2 PO; TAMS-3 PO
--- NOTE | 2019-12-27 08:20 | NUR ---
Patient bib [facility] ambulance from [facility] for c/o rectal bleeding for a few days. A/Ox2. Yakut speaking only, speech is clear, no s/sx of any acute neuro deficits. Respiratory even and unlabored, no sob but has intermittent episodes of a cough. No cardiovascular distress noted, all pulses palpable, cap refill <3 sec. Denies any n/v/d, or any abd pain upon assessment. Dried blood noted in diaper, no signs of active bleeding at this time. Patient in bed at lowest position, sr upx2, call light within reach. Fall precautions implemented per protocol.
[2019-12-27] MEDS ORDERED: FURO-152 PO (08:54)
[2019-12-27] MEDS ORDERED: PANT40TA2 PO (08:54)
[2019-12-27] MEDS ORDERED: HYDR-4384 PO (08:54)
[2019-12-27] MEDS ORDERED: CRAN450T9 PO (08:54)
[2019-12-27] MEDS ORDERED: POTA10CA43 PO (08:54)
[2019-12-27] MEDS ORDERED: CRAN3875 PO (08:54)
[2019-12-27] MEDS ORDERED: ALBU2.5V38 IH (08:54)
[2019-12-27 09:03] LABS: BASOPHILS # (AUTO) 0.1 K/uL (0.0-8.0); BASOPHILS % (AUTO) 1.1 % (0.0-2.0); EOSINOPHILS # (AUTO) 0.1 K/uL (0.0-0.7); EOSINOPHILS % (AUTO) 1.6 % (0.0-7.0); HEMOGLOBIN 9.7 g/dL (12.5-16.3); LYMPHOCYTES # (AUTO) 0.6 K/uL (20.0-40.0); LYMPHOCYTES % (AUTO) 11.2 % (20.5-51.5); MEAN CORPUSCULAR HEMOGLOBIN 26.9 uug (23.8-33.4); MEAN CORPUSCULAR HGB CONC 33 g/dL (32.5-36.3); MONOCYTES # (AUTO) 0.6 K/uL (2.0-10.0); NEUTROPHILS # (AUTO) 4.3 K/uL (1.8-8.9); NEUTROPHILS % (AUTO) 76.1 % (38.5-71.5); RED BLOOD CELL COUNT(AUTO) 3.61 MIL/uL (4.06-5.63); WHITE BLOOD COUNT (AUTO) 5.7 K/uL (3.6-10.2)
[2019-12-27 09:14] LABS: CARBON DIOXIDE 28 mmol/L (21-32); CHLORIDE 114 mmol/L (98-107); CREATININE 2.5 mg/dL (0.6-1.3); GLUCOSE 80 mg/dL (74-106); POTASSIUM 3.1 mmol/L (3.5-5.1); UREA NITROGEN, BLOOD 37 mg/dL (7-18)
[2019-12-27 09:19] LABS: ALANINE AMINOTRANSFERASE 34 U/L (16-63); ALKALINE PHOSPHATASE 89 U/L (50-136); ASPARTATE AMINOTRANSFERASE 35 U/L (15-37); BILIRUBIN,DIRECT 0.4 mg/dL (0.0-0.2); BILIRUBIN,TOTAL 0.9 mg/dL (0.2-1.0); TOTAL PROTEIN, SERUM 6.6 g/dL (6.4-8.2)
--- NOTE | 2019-12-27 09:28 | NUR ---
PATIENT RESTING WITH EYES CLOSED, NO ACUTE DISTRESS NOTED, VS STABLE.
[2019-12-27 09:33] LABS: PLATELET COUNT (AUTO) 178 K/uL (152-348)
[2019-12-27] MEDS: POTASSIUM CHLORIDE 20 MEQ TAB.PRT.SR PO ONE ×2 (09:41→09:43)
[2019-12-27] MEDS ORDERED: POTASSIUM CHLORIDE 20 MEQ TAB.PRT.SR ONE (09:42)
--- NOTE | 2019-12-27 09:49 | NUR ---
REPORT GIVEN TO ROXANA DEE.
--- NOTE | 2019-12-27 09:59 | NUR ---
SECOND ATTEMPT TO REACH [facility]. AWAIT FOR CALL BACK FROM DR. BASS.
--- NOTE | 2019-12-27 10:02 | NUR ---
PHILLIP ZAVALA ON THE LINE WITH DR. BASS DISCUSSING PATIENT CASE.
--- NOTE | 2019-12-27 10:27 | NUR ---
Patient transferred to [facility] floor in stable condition.
[2019-12-27] MEDS ORDERED: MAGNESIUM HYDROXIDE 30 ML LIQUID UDC PO PRN (12:00)
[2019-12-27] MEDS ORDERED: ONDANSETRON 4 MG/2 ML VIAL IV PRN (12:00)
[2019-12-27] MEDS ORDERED: ZOLPIDEM 5 MG TABLET PO PRN (12:00)
[2019-12-27] MEDS ORDERED: ACETAMINOPHEN 325 MG TABLET PO PRN (12:00)
[2019-12-27] MEDS ORDERED: Z GUARD REMEDY PASTE 57 GM TUBE TOP PRN (12:00)
[2019-12-27] MEDS: PANTOPRAZOLE SODIUM 40 MG TABLET.DR PO SCH (12:15)
[2019-12-27] MEDS ORDERED: ALBUTEROL SULFATE 2.5 MG/3 ML NEBU IH PRN (12:15)
[2019-12-27] MEDS ORDERED: POTASSIUM CHLORIDE 20 MEQ POWDER PACKET PO ONE (12:30)
[2019-12-27 14:00] VITALS: BP 104/64
[2019-12-27] MEDS: IV 1/2NS 1000 ML 1,000 ML IV PRN (16:38)
[2019-12-27 17:07] VITALS: BP 96/68
[2019-12-27] MEDS: OLANZAPINE 2.5 MG TABLET PO SCH (18:23)
--- NOTE | 2019-12-27 18:55 | NUR ---
PATIENT ADMITTED FROM ER WITH STABLE VITAL SIGNS; PATIENT WITH NO SIGNS OF DISTRESS HAD 12 BEATS OF VTACH AND TROPNIN OF 0.141 ; MD NOTIFIED WITH NO NEW ORDERS. PATIENT OTHERWISE IN STABLE CONDITION;ATE ALL OF LUNCH AND DINNER. PATIENT WITH NO ACTIVE NO RED BLEEDING. GI MD CALLED ASKING ABOUT QUESTION BUT PLACED NO NEW ORDERS. REPORT GIVEN TO ONCOMING NURSE.
[2019-12-27 19:30] VITALS: BP 108/65
--- NOTE | 2019-12-27 19:30 | NUR ---
Received patient awake and alert in bed, Bermudian speaking. No signs of acute distress noted. No complaints of pain or SOB at this time. IVF running on the right wrist, no s/s of infection or infiltration noted. Vitals WNL. Safety measures initiated. Bed is low and locked, call light within reach, bed alarm on. Will continue to monitor.
--- NOTE | 2019-12-27 20:34 | NUR ---
Patient ambulated to restroom, needs assist. Noted old dry blood in diaper, no active bleeding noted. Cleaned and changed patient. Will continue to monitor.
[2019-12-28] VITALS: BP 119/69
[2019-12-28] MEDS: PANTOPRAZOLE SODIUM 40 MG TABLET.DR PO SCH ×2 (00:06→13:25)
[2019-12-28 05:00] VITALS: BP 100/61
--- NOTE | 2019-12-28 05:30 | NUR ---
Cleaned patient, no bleeding noted. Patients vitals WNL. IVF running. Administered Tylenol for c/o of headache. Administered Zofran for nausea, both were effective. No acute distress noted. Safety measures maintained. Will endorse to next shift.
[2019-12-28] MEDS: LEVOTHYROXINE SODIUM 100 MCG TABLET PO SCH (06:07)
[2019-12-28] MEDS: IV 1/2NS 1000 ML 1,000 ML IV PRN ×2 (06:48→21:05)
--- NOTE | 2019-12-28 08:30 | NUR ---
RECEIVED IN BED AWAKE ALERT TO SELF WITH CONFUSSION AND DISORIENTATION AT THIS TIME ALL NEEDS ANTICIPATED AND SATISFIED NO OBVIOUS RECTAL BLEEDING AT THIS TIME BUT HE HAS SOME DRY SMALL SPECS ON HIS GOWN AND CHUCKS.WILL CONTINUE TO OBSERVE.
[2019-12-28] MEDS: METOPROLOL SUCCINATE XL 25 MG TAB.SR.24H PO SCH (08:41)
[2019-12-28] MEDS ORDERED: POTASSIUM CHLORIDE 10 MEQ TAB.PRT.SR PO SCH (09:00)
[2019-12-28] MEDS ORDERED: FUROSEMIDE 20 MG TABLET PO SCH (09:00)
--- NOTE | 2019-12-28 09:26 | NUR ---
PATIENT SEEN AND EXAMINED BY DR PADILLA WITH NEW ORDERS AND NOTED
[2019-12-28 11:47] VITALS: BP 103/67
--- NOTE | 2019-12-28 12:00 | NUR ---
CONFUSED AND DISORIENTED NOTED FEW EPISODES OF PATIENT URINATING ON THE FLOOR DESPITE URINAL AT HIS BEDSIDE REDIRECTED AND REORIENTED MAX ASSIST FOR ALL ADL WILL CONTINUE TO OBSERVE.
--- NOTE | 2019-12-28 16:00 | NUR ---
LAB HERE FOR BLOOD ORDERED ATTEMPTED X2 BUT PATIENT REFUSED PASCHUAL DNP NOTIFIED THAT PATIENT REFUSED BLOOD DRAW WITH NO NEW ORDERS AT THIS TIME.
[2019-12-28 16:46] LABS: *BILIRUBIN,URIN NEGATIVE (NEGATIVE); *BLOOD, URINE 3+ (NEGATIVE); *COLOR,URINE YELLOW (YELLOW); *KETONES,URINE NEGATIVE (NEGATIVE); *UROBILINOGEN,URINE 0.2 E.U./dl (NORMAL); LEUKOCYTE ESTERASE ,URINE 1+ (NEGATIVE); NITRITE, URINE NEGATIVE (NEGATIVE); PH,URINE 5.5 (5.0-8.0); UGLUCOSE NEGATIVE (NEGATIVE)
[2019-12-28 16:51] VITALS: BP 96/54
[2019-12-28 16:57] LABS: *CLARITY,URINE HAZY (CLEAR)
[2019-12-28] MEDS: OLANZAPINE 2.5 MG TABLET PO SCH (17:00)
[2019-12-28 17:07] LABS: BACTERIA,URINE FEW /HPF (NONE SEEN); RBC,URINE 20-50 /HPF (0-3); SQUAMOUS EPITHELIAL CELL,UR FEW /HPF (NONE SEEN)
[2019-12-28 17:30] LABS: *URINE TOTAL PROTEIN RANDOM 34.3 mg/dL (<150/24HR)
--- NOTE | 2019-12-28 17:39 | NUR ---
CONTINUE TO BE CONFUSED BUT IS COMPLIANT WITH MEDICATIONS ALL NEEDS ANTICIPATED AND SATISFIED MADE COMFORTABLE AND WILL CONTINUE TO OBSERVE.
[2019-12-28 20:23] VITALS: BP 91/53
--- NOTE | 2019-12-28 20:30 | NUR ---
PATIENT ASLEEP IN BED. EASILY AROUSABLE. ON TELE SR WITH OCCASIONAL PVC'S. RECHECKED PATIENTS BP AND RECEIVED 111/71. ALL OTHER VSS. AFEBRILE. IV NOTED TO RIGHT HAND, LEAKING AND DISLODGED. NEW IV STARTED TO LEFT HAND #20 GAUGE, IVF INFUSING ORDERED. ON O2 2L NC SATING 99%. NO RECTAL BLEEDING NOTED. BED ALARM ON. CALL LIGHT IN REACH. ALL NEEDS ATTENDED. WILL CONTINUE TO MONITOR AND ASSESS.
[2019-12-28 21:06] VITALS: BP 111/71
[2019-12-28] MEDS: HYDROCODONE/APAP 5-325MG TABLET PO PRN (21:07)
[2019-12-29 00:07] VITALS: BP 105/61
[2019-12-29] MEDS: PANTOPRAZOLE SODIUM 40 MG TABLET.DR PO SCH ×2 (00:21→11:47)
[2019-12-29 04:00] VITALS: BP 108/54
[2019-12-29] MEDS: HYDROCODONE/APAP 5-325MG TABLET PO PRN ×2 (04:30→23:37)
[2019-12-29] MEDS: LEVOTHYROXINE SODIUM 100 MCG TABLET PO SCH (06:23)
[2019-12-29] MEDS: IV 1/2NS 1000 ML 1,000 ML IV PRN (06:23)
--- NOTE | 2019-12-29 06:24 | NUR ---
PATIENT ASLEEP IN BED. EASILY AROUSABLE, BUT GOES BACK TO SLEEP. UNABLE TO TAKE PO SYNTHROID AT THIS TIME. PATIENT WAS GIVEN NORCO 1 TAB PO PRN FOR PAIN AT 0430, C/O PAIN, GENERALIZED. EFFECTIVE. VSS. 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 PATIENT PULLED OUT IV, NEW IV HEPLOCK STARTED TO RIGHT AC #20 GAUGE, WITH IVF INFUSING. NO S/S OF ANY RECTAL BLEEDING. ON O2 2L NC SATING WELL, NO RESP. DISTRESS NOTED. REPOSITIONED IN BED TO COMFORT/PRESSURE RELIEF. BED ALARM ON. CALL LIGHT IN REACH. ALL NEEDS ATTENDED, WILL CONTINUE TO MONITOR AND ASSESS.
--- NOTE | 2019-12-29 07:30 | NUR ---
RECEIVED PATIENT AWAKE CONFUSED DISORIENTED ATTEMPTING TO GET OUT OF BED UNATTENDED ASSISTED TO THE BATHROOM VOIDED AND ASSISTED BACK INTO BED FIXED AND MADE COMFORTABLE BED ALARM IN USE CALL LIGHTS AND PERSONAL BELONGINGS ARE WITHIN EASY REACH REMAIN ON IVF ORDERED NOT IN DISTRESS AT THIS TIME.
[2019-12-29] MEDS: METOPROLOL SUCCINATE XL 25 MG TAB.SR.24H PO SCH (08:26)
--- NOTE | 2019-12-29 08:29 | NUR ---
PATIENT SEEN AND EVALUATED BY [employer] CON[employer]TER WITH NO NEW ORDERS AT THIS TIME AWAITING FOR LAB RESULTS PER REPORT PATIENT HAS REFUSED AGAIN FOR BLOOD DRAW CALLED AND SPOKE WITH LAB WILL SEND SOMEONE TO ATTEMPT AGAIN.NO S/S OF RECTAL BLEEDING AT THIS TIME
[2019-12-29 10:21] LABS: BASOPHILS % (AUTO) 0.7 % (0.0-2.0); EOSINOPHILS # (AUTO) 0.2 K/uL (0.0-0.7); EOSINOPHILS % (AUTO) 5.1 % (0.0-7.0); HEMOGLOBIN 10.1 g/dL (12.5-16.3); LYMPHOCYTES # (AUTO) 0.7 K/uL (20.0-40.0); LYMPHOCYTES % (AUTO) 15.5 % (20.5-51.5); MEAN CORPUSCULAR HEMOGLOBIN 26.6 uug (23.8-33.4); MEAN CORPUSCULAR HGB CONC 31 g/dL (32.5-36.3); MEAN CORPUSCULAR VOLUME 84.9 fL (73.0-96.2); MONOCYTES # (AUTO) 0.5 K/uL (2.0-10.0); MONOCYTES % (AUTO) 10.1 % (0.0-11.0); NEUTROPHILS # (AUTO) 3.3 K/uL (1.8-8.9); NEUTROPHILS % (AUTO) 68.6 % (38.5-71.5); PLATELET COUNT (AUTO) 190 K/uL (152-348); RED BLOOD CELL COUNT(AUTO) 3.77 MIL/uL (4.06-5.63); WHITE BLOOD COUNT (AUTO) 4.8 K/uL (3.6-10.2)
[2019-12-29 10:34] LABS: ALANINE AMINOTRANSFERASE 28 U/L (16-63); ALKALINE PHOSPHATASE 69 U/L (50-136); ASPARTATE AMINOTRANSFERASE 32 U/L (15-37); BILIRUBIN,TOTAL 0.5 mg/dL (0.2-1.0); CARBON DIOXIDE 31 mmol/L (21-32); CHLORIDE 112 mmol/L (98-107); CREATINE KINASE, TOTAL 56 U/L (39-308); CREATININE 2.4 mg/dL (0.6-1.3); GLUCOSE 108 mg/dL (74-106); MAGNESIUM 1.8 mg/dL (1.8-2.4); PHOSPHOROUS 1.7 mg/dL (2.5-4.9); POTASSIUM 4.1 mmol/L (3.5-5.1); UREA NITROGEN, BLOOD 47 mg/dL (7-18)
[2019-12-29 10:46] LABS: THYROID STIMULATING HORMONE 94.882 mIU/mL (0.358-3.740)
--- NOTE | 2019-12-29 11:24 | NUR ---
PHOS LEVEL IS 1.7 REVIEWED BY [employer] ADMINISTRATOR WITH NEW ORDERS AND NOTED
[2019-12-29 11:26] VITALS: BP 101/60
[2019-12-29] MEDS ORDERED: NEUTRA PHOS PACKET PO ONE (11:30)
[2019-12-29] MEDS ORDERED: levoFLOXacin 250 MG TABLET PO SCH (11:30)
[2019-12-29] MEDS ORDERED: levoFLOXacin 500 MG TABLET PO SCH (11:30)
[2019-12-29 15:25] VITALS: BP 119/77
[2019-12-29] MEDS: OLANZAPINE 2.5 MG TABLET PO SCH (17:03)
--- NOTE | 2019-12-29 19:10 | NUR ---
pt in stable condition, bed alarm is on, pt denies pain at this time.
[2019-12-29 21:07] VITALS: BP 93/52
[2019-12-30 00:02] VITALS: BP 122/74
[2019-12-30] MEDS: PANTOPRAZOLE SODIUM 40 MG TABLET.DR PO SCH ×2 (00:03→11:44)
[2019-12-30 05:12] VITALS: BP 119/75
--- NOTE | 2019-12-30 05:46 | NUR ---
patient pulled out IV during shift. Pt is a hard stick, will attempt to put in new IV during day shift
[2019-12-30 05:59] LABS: BASOPHILS % (AUTO) 0.6 % (0.0-2.0); EOSINOPHILS # (AUTO) 0.2 K/uL (0.0-0.7); EOSINOPHILS % (AUTO) 3.6 % (0.0-7.0); HEMATOCRIT 30.2 % (36.7-47.1); HEMOGLOBIN 9.6 g/dL (12.5-16.3); LYMPHOCYTES # (AUTO) 0.7 K/uL (20.0-40.0); LYMPHOCYTES % (AUTO) 12.8 % (20.5-51.5); MEAN CORPUSCULAR HEMOGLOBIN 27.3 uug (23.8-33.4); MEAN CORPUSCULAR HGB CONC 32 g/dL (32.5-36.3); MEAN CORPUSCULAR VOLUME 85.7 fL (73.0-96.2); MONOCYTES # (AUTO) 0.5 K/uL (2.0-10.0); MONOCYTES % (AUTO) 10.3 % (0.0-11.0); NEUTROPHILS # (AUTO) 3.8 K/uL (1.8-8.9); NEUTROPHILS % (AUTO) 72.7 % (38.5-71.5); PLATELET COUNT (AUTO) 189 K/uL (152-348); RED BLOOD CELL COUNT(AUTO) 3.53 MIL/uL (4.06-5.63); WHITE BLOOD COUNT (AUTO) 5.2 K/uL (3.6-10.2)
[2019-12-30 06:10] LABS: CARBON DIOXIDE 31 mmol/L (21-32); CHLORIDE 112 mmol/L (98-107); CREATININE 2.3 mg/dL (0.6-1.3); GLUCOSE 112 mg/dL (74-106); PHOSPHOROUS 1.9 mg/dL (2.5-4.9); POTASSIUM 4.4 mmol/L (3.5-5.1); UREA NITROGEN, BLOOD 52 mg/dL (7-18)
[2019-12-30] MEDS: LEVOTHYROXINE SODIUM 100 MCG TABLET PO SCH (06:18)
[2019-12-30] MEDS ORDERED: NEUTRA PHOS PACKET PO ONE (07:30)
[2019-12-30] MEDS: METOPROLOL SUCCINATE XL 25 MG TAB.SR.24H PO SCH (08:08)
[2019-12-30] MEDS ORDERED: IV D5W 1000ML 1,000 ML IV ONE (08:30)
[2019-12-30 09:09] LABS: A/G RATIO 0.8 (0.7-1.7); ALBUMIN 2.6 g/dL (2.9-4.4); ALPHA-1-GLOBULIN 0.3 g/dL (0.0-0.4); ALPHA-2-GLOBULIN 0.6 g/dL (0.4-1.0); BETA GLOBULIN 0.8 g/dL (0.7-1.3); GAMMA GLOBULIN 1.5 g/dL (0.4-1.8); GLOBULIN, TOTAL 3.2 g/dL (2.2-3.9); M-SPIKE Not Observed g/dL (Not Observed)
[2019-12-30] MEDS ORDERED: Levofloxacin PO (10:53)
[2019-12-30 11:33] VITALS: BP 101/50
--- NOTE | 2019-12-30 11:45 | NUR ---
pt do not have any iv access
--- NOTE | 2019-12-30 13:39 | NUR ---
dc orders received noted and carried out.dc instruction and rn report given to halfway pt left the facility via ambulances in stable condition
== END 2019-12-30 13:43 | DRG 377 ==
LOC: ER 08:13 → TELE3 10:06
PROVIDERS: ADMIT Hospitalist; ATTEND Nurse Practitioner Acute Care
DX: K92.2 Gastrointestinal hemorrhage, unspecified (principal); N17.0 Acute kidney failure with tubular necrosis; I21.A1 Myocardial infarction type 2; I50.22 Chronic systolic (congestive) heart failure; I13.0 Hypertensive heart and chronic kidney disease with heart failure and stage 1 through stage 4 chronic kidney disease, or unspecified chronic kidney disease; E44.0 Moderate protein-calorie malnutrition; E87.0 Hyperosmolality and hypernatremia; I42.0 Dilated cardiomyopathy; J98.11 Atelectasis; N39.0 Urinary tract infection, site not specified; J90 Pleural effusion, not elsewhere classified; N18.9 Chronic kidney disease, unspecified; E03.9 Hypothyroidism, unspecified; I25.2 Old myocardial infarction; E87.6 Hypokalemia; E83.39 Other disorders of phosphorus metabolism; F03.90 Unspecified dementia, unspecified severity, without behavioral disturbance, psychotic disturbance, mood disturbance, and anxiety; I25.10 Atherosclerotic heart disease of native coronary artery without angina pectoris; J44.9 Chronic obstructive pulmonary disease, unspecified; K21.9 Gastro-esophageal reflux disease without esophagitis; Z86.73 Personal history of transient ischemic attack (TIA), and cerebral infarction without residual deficits; Z79.82 Long term (current) use of aspirin; F20.9 Schizophrenia, unspecified; D64.9 Anemia, unspecified; Z87.891 Personal history of nicotine dependence; Z91.19 Patient's noncompliance with other medical treatment and regimen; E88.09 Other disorders of plasma-protein metabolism, not elsewhere classified; M62.50 Muscle wasting and atrophy, not elsewhere classified, unspecified site; K74.60 Unspecified cirrhosis of liver; Z68.23 Body mass index [BMI] 23.0-23.9, adult
CPT/HCPCS: 36415; 70030-TC; 71045; 76770; 83550; 83735; 83970; 84100; 84155; 84156; 84165; 84300; 84443; 84481; 85025; 85730; 86850; 86900; 86901; 87086; 93005; A4663; G0378; J2405; J3490; J7030